=== PATIENT | female | born 1935 | race Caucasian/White ===

== ENCOUNTER 2017-05-14 20:21 | Inpatient (IN) | payer MEDICARE, BC ==
[2017-05-14] MEDS ORDERED: ACETAMINOPHEN TAB 325 MG TAB PO STA (20:56)
--- NOTE | 2017-05-14 21:03 | ED ---
Head Injury HPI - General Source: patient, EMS Mode of arrival: EMS Limitations: altered mental status - History of Present Illness Place: home <Cecelia Chase - Last Filed: 05/14/17 23:18> <Jr Galeano - Last Filed: 05/26/17 23:25> - General Chief complaint: Head Injury Stated complaint: fall Time Seen by Provider: 05/14/17 20:37 - History of Present Illness Initial comments: 81-year-old female patient presents to emergency department today for evaluation after falling from bed and hitting her head. This occurred approximately 7:40 PM. Patient is unsure of the details. She is unsure what she hit her head on. Patient denies any loss of consciousness. She denies any current headache, neck pain, back pain, or other injuries. Family denies any use of anticoagulant medication. Patient does exhibit some mild confusion however family states this is normal from previous CVA. Patient denies any chest pain, shortness of breath, dizziness, weakness, abdominal pain, nausea, vomiting, or difficulties with bowel movements or urination. She denies any cough, congestion, or throat, dysuria, hematuria, urinary urgency, urinary frequency. (Cecelia Chase) - Related Data Home Medications Medication Instructions Recorded Confirmed Budesonide/Formoterol Fumarate 2 puff INHALATION RT-BID@05/10/16 05/14/17 [Symbicort 160-4.5 Mcg Inhaler] Cholecalciferol [Vitamin D3] 1,000 unit PO DAILY@1700 05/10/16 05/14/17 Famotidine [Pepcid] 20 mg PO BID@0800,169905/10/16 05/14/17 Polyethylene Glycol 3350 [Miralax] 17 gm PO DAILY PRN 05/10/16 05/14/17 Valsartan/Hydrochlorothiazide 1 tab PO DAILY@0800 05/10/16 05/14/17 [Diovan Hct 160-12.5 mg Tab] metFORMIN HCL [Glucophage] 500 mg PO BID@0800,1700 05/10/16 05/14/17 Aspirin 81 mg PO DAILY@1700 05/14/17 05/14/17 Bisacodyl [Dulcolax] 10 mg RECTAL DAILY PRN 05/14/17 05/14/17 Glucerna 1.5 120 ml PO TID@08,12,17 05/14/17 05/14/17 Ipratropium-Albuterol Nebulize 3 ml INHALATION RT-QID@08,,17,21 05/14/1705/14 [Duoneb 0.5 mg-3 mg/3 ml Soln] Magnesium Hydroxide [Milk of 2,400 mg PO DAILY PRN 05/14/17 05/14/17 Magnesia] Na Phos,M-B/Na Phos,Di-Ba [Fleet 133 ml RECTAL ONCE PRN 05/14/17 05/14/17 Adult] Oxybutynin Chloride 2.5 mg PO BID@0800,1700 05/14/17 05/14/17 amLODIPine [Norvasc] 2.5 mg PO DAILY@0800 05/14/17 05/14/17 Previous Rx's Medication Instructions Recorded guaiFENesin [Mucinex] 1,200 mg PO Q12HR tablet.er 05/13/16 Cefuroxime [Ceftin] 250 mg PO BID #6 tablet 05/17/17 HYDROcodone/APAP 10-325MG [[place] 1 each PO Q4HR PRN #10 tab 05/17/17 10-325] HYDROcodone/APAP 10-325MG [[place] 1 tab PO TID@,,22 #20 05/17/17 10-325] LORazepam [Ativan] 0.5 mg PO DAILY PRN #10 05/17/17 fentaNYL 50MCG/HR PATCH [Duragesic 1 patch TRANSDERM Q72H #3 patch 05/17/17 50MCG/HR] rOPINIRole HCL [Requip] 0.75 mg PO HS tab 05/17/17 Allergies/Adverse reactions: Allergies Allergy/AdvReac Type Severity Reaction Status Date / Time pregabalin [From Lyrica] Allergy Swelling Verified 05/14/17 20:53 Review of Systems ROS Other: All systems not noted in ROS Statement are negative. <Cecelia Chase - Last Filed: 05/14/17 23:18> ROS Other: All systems not noted in ROS Statement are negative. <Jr Galeano - Last Filed: 05/26/17 23:25> ROS Statement: Those systems with pertinent positive or pertinent negative responses have been documented in the HPI. Past Medical History Past Medical History: COPD, CVA/TIA, Diabetes Mellitus, Hyperlipidemia, Hypertension Additional Past Medical History / Comment(s): RESTLESS LEG SYNDROME, BACK PAIN, .AORTIC ANEURYSM History of Any Multi-Drug Resistant Organisms: None Reported Past Surgical History: Appendectomy Additional Past Surgical History / Comment(s): BONE GRAFT FROM HIP TO "NECK". Past Anesthesia/Blood Transfusion Reactions: No Reported Reaction Past Psychological History: Anxiety Smoking Status: Former smoker Past Alcohol Use History: None Reported Past Drug Use History: None Reported - Past Family History Father Family Medical History: CVA/TIA <Cecelia Chase - Last Filed: 05/14/17 23:18> General Exam Limitations: altered mental status General appearance: alert, in no apparent distress, other (Vital signs upon presentation are temperature 100F, pulse 91, respirations 16, blood pressure 118/71, pulse ox 92% on room air.) Head exam: Present: other (Hematoma to the right forehead, no open wounds or bleeding.). Absent: atraumatic Eye exam: Present: normal appearance, PERRL, EOMI. Absent: scleral icterus, conjunctival injection, periorbital swelling ENT exam: Present: normal exam, normal oropharynx, mucous membranes moist, TM's normal bilaterally, other (No evidence of Jay sign) Neck exam: Present: normal inspection, full ROM, other (Nontender, no step-off, no deformity to firm midline palpation of the posterior cervical spine. Full range of motion without pain or limitation.). Absent: tenderness, meningismus, lymphadenopathy Respiratory exam: Present: normal lung sounds bilaterally. Absent: respiratory distress, wheezes, rales, rhonchi, stridor Cardiovascular Exam: Present: regular rate, normal rhythm, normal heart sounds. Absent: systolic murmur, diastolic murmur, rubs, gallop, clicks GI/Abdominal exam: Present: soft, normal bowel sounds. Absent: distended, tenderness, guarding, rebound, rigid Extremities exam: Present: normal inspection, full ROM, normal capillary refill , other (No pelvic tenderness or hip tenderness to compression.). Absent: tenderness, pedal edema, joint swelling, calf tenderness Back exam: Present: normal inspection, other (Nontender, no step-off, no deformity to firm midline palpation of the thoracic and lumbar vertebrae.). Absent: tenderness, vertebral tenderness Neurological exam: Present: alert, CN II-XII intact. Absent: oriented X3 ( Oriented x2. ) Psychiatric exam: Present: normal affect, normal mood Skin exam: Present: warm, dry, intact, normal color. Absent: rash <Cecelia Chase - Last Filed: 05/14/17 23:18> Vital Signs 05/14/17 05/14/17 05/14/17 20:22 21:05 21:14 Temperature 100.0 F H 99.9 F H Pulse Rate 91 84 Respiratory 16 18 Rate Blood Pressure 118/71 128/73 O2 Sat by Pulse 92 L 96 97 Oximetry 05/14/17 05/14/17 22:21 23:15 Temperature 97.6 F Pulse Rate 69 75 Respiratory 16 16 Rate Blood Pressure 132/72 118/75 O2 Sat by Pulse 96 Oximetry Medical Decision Making - Lab Data Result diagrams: 05/14/17 21:48 05/14/17 21:48 - Radiology Data Radiology results: report reviewed, image reviewed <Cecelia Chase - Last Filed: 05/14/17 23:18> - Lab Data Result diagrams: 05/17/17 08:59 05/17/17 08:59 <Jr Galeano - Last Filed: 05/26/17 23:25> - Medical Decision Making 81-year-old female patient presented to emergency department today for evaluation after sustaining a head injury. Upon presentation he did have an elevated temperature and heart rate. Urinalysis and lactic acid were ordered. A lactic acid was 3.2, urinalysis did show large leukocyte esterase, 16 white blood cells, rare white blood cell clumps, 6 epithelial cells, and occasional bacteria. Chest x-ray was performed and showed some bibasilar atelectasis as well as a large thoracic aortic aneurysm redemonstrated. Blood culture and urine culture has been sent. Vital signs did improve with Tylenol and IV fluids. Patient will be admitted to the hospital for IV antibiotics and further evaluation. (Cecelia Chase) I saw this patient in conjunction with the physician culinary assistant. I performed independent history and physical exam. Agree with case management. (Jr Galeano) - Lab Data Lab Results 05/14/17 05/14/17 05/14/17 Range/Units 20:33 21:48 21:48 WBC 6.7 (3.8-10.6) k/uL RBC 3.94 (3.80-5.40) m/uL Hgb 12.5 (11.4-16.0) gm/dL Hct 39.2 (34.0-46.0) % MCV 99.5 (80.0-100.0) fL MCH 31.8 (25.0-35.0) pg MCHC 32.0 (31.0-37.0) g/dL RDW 13.2 (11.5-15.5) % Plt Count 205 (150-450) k/uL Neutrophils % 77 % Lymphocytes % 11 % Monocytes % 4 % Eosinophils % 6 % Basophils % 1 % Neutrophils # 5.1 (1.3-7.7) k/uL Lymphocytes # 0.7 L (1.0-4.8) k/uL Monocytes # 0.3 (0-1.0) k/uL Eosinophils # 0.4 (0-0.7) k/uL Basophils # 0.1 (0-0.2) k/uL Macrocytosis Sodium 142 (137-145) mmol/L Potassium 4.8 (3.5-5.1) mmol/L Chloride 102 (98-107) mmol/L Carbon Dioxide 26 (22-30) mmol/L Anion Gap 14 mmol/L BUN 35 H (7-17) mg/dL Creatinine 1.40 H (0.52-1.04) mg/dL Est GFR (MDRD) Af Amer 44 (>60 ml/min/1.73 sqM) Est GFR (MDRD) Non-Af 36 (>60 ml/min/1.73 sqM) Glucose 148 H (74-99) mg/dL POC Glucose (mg/dL) (75-99) mg/dL POC Glu Air Brake Operator ID Lactic Ac Sepsis Rflx Plasma Lactic Acid Marc (0.7-2.0) mmol/L Calcium 9.8 (8.4-10.2) mg/dL Urine Color Yellow Urine Appearance Clear (Clear) Urine pH 5.0 (5.0-8.0) Ur Specific Chambers 1.014 (1.001-1.035) Urine Protein Negative (Negative) Urine Glucose (UA) Negative (Negative) Urine Ketones Negative (Negative) Urine Blood Negative (Negative) Urine Nitrite Negative (Negative) Urine Bilirubin Negative (Negative) Urine Urobilinogen <2.0 (<2.0) mg/dL Ur Leukocyte Esterase Large H (Negative) Urine RBC 1 (0-5) /hpf Urine WBC 16 H (0-5) /hpf Urine WBC Clumps Rare H (None) /hpf Ur Squamous Epith Cells 6 H (0-4) /hpf Urine Bacteria Occasional H (None) /hpf Granular Casts 1 (0) /lpf 05/14/17 05/14/17 05/15/17 Range/Units 21:48 22:21 00:40 WBC (3.8-10.6) k/uL RBC (3.80-5.40) m/uL Hgb (11.4-16.0) gm/dL Hct (34.0-46.0) % MCV (80.0-100.0) fL MCH (25.0-35.0) pg MCHC (31.0-37.0) g/dL RDW (11.5-15.5) % Plt Count (150-450) k/uL Neutrophils % % Lymphocytes % % Monocytes % % Eosinophils % % Basophils % % Neutrophils # (1.3-7.7) k/uL Lymphocytes # (1.0-4.8) k/uL Monocytes # (0-1.0) k/uL Eosinophils # (0-0.7) k/uL Basophils # (0-0.2) k/uL Macrocytosis Sodium (137-145) mmol/L Potassium (3.5-5.1) mmol/L Chloride (98-107) mmol/L Carbon Dioxide (22-30) mmol/L Anion Gap mmol/L BUN (7-17) mg/dL Creatinine (0.52-1.04) mg/dL Est GFR (MDRD) Af Amer (>60 ml/min/1.73 sqM) Est GFR (MDRD) Non-Af (>60 ml/min/1.73 sqM) Glucose (74-99) mg/dL POC Glucose (mg/dL) (75-99) mg/dL POC Glu Air Brake Operator ID Lactic Ac Sepsis Rflx Y Plasma Lactic Acid Marc 3.2 H* 1.3 (0.7-2.0) mmol/L Calcium (8.4-10.2) mg/dL Urine Color Urine Appearance (Clear) Urine pH (5.0-8.0) Ur Specific Chambers (1.001-1.035) Urine Protein (Negative) Urine Glucose (UA) (Negative) Urine Ketones (Negative) Urine Blood (Negative) Urine Nitrite (Negative) Urine Bilirubin (Negative) Urine Urobilinogen (<2.0) mg/dL Ur Leukocyte Esterase (Negative) Urine RBC (0-5) /hpf Urine WBC (0-5) /hpf Urine WBC Clumps (None) /hpf Ur Squamous Epith Cells (0-4) /hpf Urine Bacteria (None) /hpf Granular Casts (0) /lpf 05/15/17 05/15/17 05/15/17 Range/Units 07:12 07:29 07:29 WBC 5.3 (3.8-10.6) k/uL RBC 3.48 L (3.80-5.40) m/uL Hgb 11.2 L (11.4-16.0) gm/dL Hct 35.1 (34.0-46.0) % MCV 100.8 H (80.0-100.0) fL MCH 32.1 (25.0-35.0) pg MCHC 31.9 (31.0-37.0) g/dL RDW 13.4 (11.5-15.5) % Plt Count 192 (150-450) k/uL Neutrophils % 62 % Lymphocytes % 16 % Monocytes % 7 % Eosinophils % 13 % Basophils % 1 % Neutrophils # 3.3 (1.3-7.7) k/uL Lymphocytes # 0.8 L (1.0-4.8) k/uL Monocytes # 0.4 (0-1.0) k/uL Eosinophils # 0.7 (0-0.7) k/uL Basophils # 0.0 (0-0.2) k/uL Macrocytosis Slight Sodium 144 (137-145) mmol/L Potassium 4.5 (3.5-5.1) mmol/L Chloride 106 (98-107) mmol/L Carbon Dioxide 28 (22-30) mmol/L Anion Gap 10 mmol/L BUN 24 H (7-17) mg/dL Creatinine 0.98 (0.52-1.04) mg/dL Est GFR (MDRD) Af Amer >60 (>60 ml/min/1.73 sqM) Est GFR (MDRD) Non-Af 54 (>60 ml/min/1.73 sqM) Glucose 90 (74-99) mg/dL POC Glucose (mg/dL) 100 H (75-99) mg/dL POC Glu Air Brake Operator ID Taisha Meza Ac Sepsis Rflx Plasma Lactic Acid Marc (0.7-2.0) mmol/L Calcium 8.9 (8.4-10.2) mg/dL Urine Color Urine Appearance (Clear) Urine pH (5.0-8.0) Ur Specific Chambers (1.001-1.035) Urine Protein (Negative) Urine Glucose (UA) (Negative) Urine Ketones (Negative) Urine Blood (Negative) Urine Nitrite (Negative) Urine Bilirubin (Negative) Urine Urobilinogen (<2.0) mg/dL Ur Leukocyte Esterase (Negative) Urine RBC (0-5) /hpf Urine WBC (0-5) /hpf Urine WBC Clumps (None) /hpf Ur Squamous Epith Cells (0-4) /hpf Urine Bacteria (None) /hpf Granular Casts (0) /lpf 05/15/17 05/15/17 05/15/17 Range/Units 12:32 17:26 20:48 WBC (3.8-10.6) k/uL RBC (3.80-5.40) m/uL Hgb (11.4-16.0) gm/dL Hct (34.0-46.0) % MCV (80.0-100.0) fL MCH (25.0-35.0) pg MCHC (31.0-37.0) g/dL RDW (11.5-15.5) % Plt Count (150-450) k/uL Neutrophils % % Lymphocytes % % Monocytes % % Eosinophils % % Basophils % % Neutrophils # (1.3-7.7) k/uL Lymphocytes # (1.0-4.8) k/uL Monocytes # (0-1.0) k/uL Eosinophils # (0-0.7) k/uL Basophils # (0-0.2) k/uL Macrocytosis Sodium (137-145) mmol/L Potassium (3.5-5.1) mmol/L Chloride (98-107) mmol/L Carbon Dioxide (22-30) mmol/L Anion Gap mmol/L BUN (7-17) mg/dL Creatinine (0.52-1.04) mg/dL Est GFR (MDRD) Af Amer (>60 ml/min/1.73 sqM) Est GFR (MDRD) Non-Af (>60 ml/min/1.73 sqM) Glucose (74-99) mg/dL POC Glucose (mg/dL) 99 117 H 193 H (75-99) mg/dL POC Glu Air Brake Operator ID Loli, Kayley Meza, Taisha Bacon, Talia Lactic Ac Sepsis Rflx Plasma Lactic Acid Marc (0.7-2.0) mmol/L Calcium (8.4-10.2) mg/dL Urine Color Urine Appearance (Clear) Urine pH (5.0-8.0) Ur Specific Chambers (1.001-1.035) Urine Protein (Negative) Urine Glucose (UA) (Negative) Urine Ketones (Negative) Urine Blood (Negative) Urine Nitrite (Negative) Urine Bilirubin (Negative) Urine Urobilinogen (<2.0) mg/dL Ur Leukocyte Esterase (Negative) Urine RBC (0-5) /hpf Urine WBC (0-5) /hpf Urine WBC Clumps (None) /hpf Ur Squamous Epith Cells (0-4) /hpf Urine Bacteria (None) /hpf Granular Casts (0) /lpf 05/16/17 05/16/17 05/16/17 Range/Units 06:55 12:27 17:14 WBC (3.8-10.6) k/uL RBC (3.80-5.40) m/uL Hgb (11.4-16.0) gm/dL Hct (34.0-46.0) % MCV (80.0-100.0) fL MCH (25.0-35.0) pg MCHC (31.0-37.0) g/dL RDW (11.5-15.5) % Plt Count (150-450) k/uL Neutrophils % % Lymphocytes % % Monocytes % % Eosinophils % % Basophils % % Neutrophils # (1.3-7.7) k/uL Lymphocytes # (1.0-4.8) k/uL Monocytes # (0-1.0) k/uL Eosinophils # (0-0.7) k/uL Basophils # (0-0.2) k/uL Macrocytosis Sodium (137-145) mmol/L Potassium (3.5-5.1) mmol/L Chloride (98-107) mmol/L Carbon Dioxide (22-30) mmol/L Anion Gap mmol/L BUN (7-17) mg/dL Creatinine (0.52-1.04) mg/dL Est GFR (MDRD) Af Amer (>60 ml/min/1.73 sqM) Est GFR (MDRD) Non-Af (>60 ml/min/1.73 sqM) Glucose (74-99) mg/dL POC Glucose (mg/dL) 95 96 119 H (75-99) mg/dL POC Glu Air Brake Operator ANDREAS Moore, Pinky Yu Meghan Lactic Ac Sepsis Rflx Plasma Lactic Acid Marc (0.7-2.0) mmol/L Calcium (8.4-10.2) mg/dL Urine Color Urine Appearance (Clear) Urine pH (5.0-8.0) Ur Specific Chambers (1.001-1.035) Urine Protein (Negative) Urine Glucose (UA) (Negative) Urine Ketones (Negative) Urine Blood (Negative) Urine Nitrite (Negative) Urine Bilirubin (Negative) Urine Urobilinogen (<2.0) mg/dL Ur Leukocyte Esterase (Negative) Urine RBC (0-5) /hpf Urine WBC (0-5) /hpf Urine WBC Clumps (None) /hpf Ur Squamous Epith Cells (0-4) /hpf Urine Bacteria (None) /hpf Granular Casts (0) /lpf 05/16/17 05/17/17 Range/Units 20:41 07:14 WBC (3.8-10.6) k/uL RBC (3.80-5.40) m/uL Hgb (11.4-16.0) gm/dL Hct (34.0-46.0) % MCV (80.0-100.0) fL MCH (25.0-35.0) pg MCHC (31.0-37.0) g/dL RDW (11.5-15.5) % Plt Count (150-450) k/uL Neutrophils % % Lymphocytes % % Monocytes % % Eosinophils % % Basophils % % Neutrophils # (1.3-7.7) k/uL Lymphocytes # (1.0-4.8) k/uL Monocytes # (0-1.0) k/uL Eosinophils # (0-0.7) k/uL Basophils # (0-0.2) k/uL Macrocytosis Sodium (137-145) mmol/L Potassium (3.5-5.1) mmol/L Chloride (98-107) mmol/L Carbon Dioxide (22-30) mmol/L Anion Gap mmol/L BUN (7-17) mg/dL Creatinine (0.52-1.04) mg/dL Est GFR (MDRD) Af Amer (>60 ml/min/1.73 sqM) Est GFR (MDRD) Non-Af (>60 ml/min/1.73 sqM) Glucose (74-99) mg/dL POC Glucose (mg/dL) 149 H 99 (75-99) mg/dL POC Glu Air Brake Operator ID Gina Elmore, Edith Lactic Ac Sepsis Rflx Plasma Lactic Acid Marc (0.7-2.0) mmol/L Calcium (8.4-10.2) mg/dL Urine Color Urine Appearance (Clear) Urine pH (5.0-8.0) Ur Specific Chambers (1.001-1.035) Urine Protein (Negative) Urine Glucose (UA) (Negative) Urine Ketones (Negative) Urine Blood (Negative) Urine Nitrite (Negative) Urine Bilirubin (Negative) Urine Urobilinogen (<2.0) mg/dL Ur Leukocyte Esterase (Negative) Urine RBC (0-5) /hpf Urine WBC (0-5) /hpf Urine WBC Clumps (None) /hpf Ur Squamous Epith Cells (0-4) /hpf Urine Bacteria (None) /hpf Granular Casts (0) /lpf - Radiology Data Two-view x-ray of the chest did show some linear density at the lung bases. Thoracic aorta is atherosclerotic with 5 cm aneurysm. There is no heart failure. There is no evidence of pneumothorax. There is osteopenia. Impression by Dr. Keller shows large aneurysm ascending aorta. There is new patchy atelectasis at the lung bases compared to last exam. CT of the head and cervical spine were performed without contrast, report reviewed in its entirety. Impression by Dr. Keller shows cerebral atrophy. Chronic small vessel ischemia. 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 No significant change compared to old exam. Spondylotic changes in the cervical spine. No fracture. (Cecelia Chase) Disposition Decision to Admit Reason: Admit from EC Decision Date: 05/14/17 Decision Time: 22:44 <Cecelia Chase - Last Filed: 05/14/17 23:18> <Jr Galeano - Last Filed: 05/26/17 23:25> Clinical Impression: Urinary tract infection, Dehydration, Head injury Disposition: ADMITTED IP TO THIS HOSP Condition: Stable
[2017-05-14 21:11] LABS: Appearance,Urine Clear (Clear); Bacteria,Urine Occasional /hpf; Bilirubin,Urine Negative (Negative); Glucose,Urine (UA) Negative (Negative); Granular Casts,Urine 1 /lpf (0); Ketones,Urine Negative (Negative); Leukocyte Esterase,Urine Large (Negative); Nitrite,Urine Negative (Negative); Particle Count 3063; Protein,Urine Negative (Negative); RBC,Urine 1 /hpf (0-5); Specific Gravity,Urine 1.014 (1.001-1.035); Squamous Epithelial Cell,Urine 6 /hpf (0-4); UA Billing (MACRO vs. MICRO) MICRO; Urobilinogen,Urine <2.0 mg/dL (<2.0); WBC,Urine 16 /hpf (0-5)
--- NOTE | 2017-05-14 21:37 | XR ---
EXAMINATION TYPE: XR chest 2V DATE OF EXAM: 05/14/2017 COMPARISON: 05/10/2016 HISTORY: Fall. Trauma. Pain. TECHNIQUE: Frontal and lateral views of the chest are obtained. FINDINGS: There is some linear density at the lung bases. Thoracic aorta is atherosclerotic with 5 c m aneurysm. There is no heart failure. There is no evidence of a pneumothorax. There is osteopenia. IMPRESSION: Large aneurysm of ascending aorta. There is new patchy atelectasis at the lung bases com pared to last exam.
--- NOTE | 2017-05-14 21:43 | CT ---
EXAMINATION TYPE: CT brain tita harper DATE OF EXAM: 05/14/2017 COMPARISON: NONE HISTORY: Fall today. Right frontal injury. No LOC. CT DLP: 1364.30 mGycm Automated exposure control for dose reduction was used. TECHNIQUE: CT scan of the head and cervical spine are performed without contrast. FINDINGS: There is diffuse cerebral cortical atrophy. There is moderate patchy hypodensity in the p eriventricular white matter. There is no mass effect nor midline shift. There is no sign of intracran ial hemorrhage. There is a 4 x 4 centimeter old left occipital and posterior parietal lobe cortical i nfarct. The calvarium is intact. There is right frontal scalp soft tissue swelling. The cervical vertebra have normal alignment. There is old anterior fusion at C6-7. There is some narr owing of the disc space at C5-6 with spurring of the endplates. Posterior elements are intact. Skull base is intact. There is no sign of a fracture. There is no paraspinal mass. IMPRESSION: Cerebral atrophy. Chronic small vessel ischemia. 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 No significant change compared to old exam. Spondylotic changes in the cervical spine. No fracture.
[2017-05-14 22:10] LABS: Basophils # (A) 0.1 k/uL (0-0.2); Basophils % (A) 1 %; CH 32.1; CHCM 32.4; Eosinophils # (A) 0.4 k/uL (0-0.7); Eosinophils % (A) 6 %; HCT 39.2 % (34.0-46.0); HGB 12.5 gm/dL (11.4-16.0); Luc % (Auto) 1; Lymphocytes # (A) 0.7 k/uL (1.0-4.8); Lymphocytes % (A) 11 %; MCH 31.8 pg (25.0-35.0); MCV 99.5 fL (80.0-100.0); Mean Platelet Volume 8.9; Monocytes # (A) 0.3 k/uL (0-1.0); Monocytes % (A) 4 %; Neutrophils # (A) 5.1 k/uL (1.3-7.7); Neutrophils % (A) 77 %; RBC 3.94 m/uL (3.80-5.40); RDW 13.2 % (11.5-15.5); WBC 6.7 k/uL (3.8-10.6); WBC (Perox) 7.11
[2017-05-14 22:21] LABS: Calcium 9.8 mg/dL (8.4-10.2); Potassium 4.8 mmol/L (3.5-5.1)
[2017-05-14] MEDS ORDERED: SODIUM CHLORIDE 0.9% 500 ML IV ONE ×2 (22:33→22:39)
[2017-05-14] MEDS ORDERED: ACETAMINOPHEN TAB 325 MG TAB PO PRN (22:40)
[2017-05-14] MEDS ORDERED: NALOXONE 0.4 MG/ML 1 ML VIAL IV PRN (22:40)
[2017-05-14] MEDS: SODIUM CHLORIDE 0.9% 1,000 ML IV SCH (22:57)
[2017-05-15] MEDS ORDERED: HYDROcodone/APAP 10-325MG 1 EACH TAB PO PRN (01:33)
[2017-05-15] MEDS ORDERED: MAGNESIUM HYDROXIDE 2,400 MG/10 ML CUP PO PRN (01:33)
[2017-05-15] MEDS ORDERED: POLYETHYLENE GLYCOL 3350 17 GM POWD.PACK PO PRN (01:33)
[2017-05-15] MEDS ORDERED: BISACODYL 10 MG SUPP RECTAL PRN (01:33)
[2017-05-15] MEDS ORDERED: NA PHOS,M-B/NA PHOS,DI-BA 133 ML ENEMA RECTAL PRN (01:33)
[2017-05-15] MEDS ORDERED: LORazepam 0.5 MG TAB PO PRN (01:33)
[2017-05-15] MEDS: HYDROcodone/APAP 10-325MG 1 EACH TAB PO SCH ×3 (05:05→22:23)
[2017-05-15 07:28] LABS: Glucose,Whole Blood 100 mg/dL (75-99)
[2017-05-15] MEDS ORDERED: HYDROCHLOROTHIAZIDE 12.5 MG CAP PO SCH (08:00)
[2017-05-15] MEDS ORDERED: ENTERAL NUTRITION FORMULA PO SCH (08:00)
[2017-05-15 08:19] LABS: Basophils % (A) 1 %; CH 32.5; CHCM 32.4; Eosinophils # (A) 0.7 k/uL (0-0.7); Eosinophils % (A) 13 %; HCT 35.1 % (34.0-46.0); HGB 11.2 gm/dL (11.4-16.0); Luc # (Auto) 0.13; Luc % (Auto) 2; Lymphocytes # (A) 0.8 k/uL (1.0-4.8); Lymphocytes % (A) 16 %; MCH 32.1 pg (25.0-35.0); MCHC 31.9 g/dL (31.0-37.0); MCV 100.8 fL (80.0-100.0); Macrocytosis Slight; Mean Platelet Volume 8.7; Monocytes # (A) 0.4 k/uL (0-1.0); Monocytes % (A) 7 %; Neutrophils # (A) 3.3 k/uL (1.3-7.7); Neutrophils % (A) 62 %; RBC 3.48 m/uL (3.80-5.40); RDW 13.4 % (11.5-15.5); WBC 5.3 k/uL (3.8-10.6); WBC (Perox) 5.68
[2017-05-15] MEDS: guaiFENesin 600 MG TABLET.ER PO SCH ×2 (08:20→20:24)
[2017-05-15] MEDS: FAMOTIDINE 20 MG TAB PO SCH ×2 (08:20→16:27)
[2017-05-15] MEDS: amLODIPine 2.5 MG TAB PO SCH (08:23)
[2017-05-15] MEDS: metFORMIN 500 MG TAB PO SCH ×3 (08:23→19:27)
[2017-05-15] MEDS: LORazepam 0.5 MG TAB PO SCH ×2 (08:23→20:23)
[2017-05-15] MEDS: VALSARTAN 160 MG TAB PO SCH (08:24)
[2017-05-15] MEDS: OXYBUTYNIN CHLORIDE 5 MG TAB PO SCH ×2 (08:24→16:28)
[2017-05-15 08:30] LABS: Anion Gap 10 mmol/L; Blood Urea Nitrogen 24 mg/dL (7-17); Calcium 8.9 mg/dL (8.4-10.2); Carbon Dioxide 28 mmol/L (22-30); Chloride 106 mmol/L (98-107); Glucose 90 mg/dL (74-99); Non-African American GFR(MDRD) 54 (>60 ml/min/1.73 sqM); Potassium 4.5 mmol/L (3.5-5.1); Sodium 144 mmol/L (137-145)
[2017-05-15] MEDS: SYMBICORT 160-4.5 MCG INHALER INHALATION SCH ×2 (08:31→20:15)
[2017-05-15] MEDS: IPRATROPIUM-ALBUTEROL 3 ML NEB INHALATION SCH ×4 (08:31→20:17)
[2017-05-15] MEDS: ENOXAPARIN 30 MG/0.3 ML SYRINGE SQ SCH (09:04)
[2017-05-15 12:39] LABS: Glucose,Whole Blood 99 mg/dL (75-99)
[2017-05-15] MEDS: SODIUM CHLORIDE 0.9% 1,000 ML IV SCH (13:03)
--- NOTE | 2017-05-15 16:25 | HP ---
HISTORY AND PHYSICAL DATE OF ADMISSION: 05/14/2017 PRESENTING COMPLAINT: Fall. HISTORY OF PRESENTING COMPLAINT: This is an 81-year-old patient I saw today for history and physical. The patient is a resident of [facility], being followed by Dr. Doyle. Chronic stable medical conditions include COPD, diabetes, hypertension, hyperlipidemia, restless legs syndrome, on oxygen 2L. The patient is not a good historian because of underlying dementia. Normally uses a walker or a wheelchair. Patient is not sure how she took a fall, has been feeling a bit weak and tired, has a slight bruising on the right forehead. Patient only able to answer some very basic questions, thought she was feeling a bit dizzy, lightheaded. REVIEW OF SYSTEMS: CONSTITUTIONAL: Tired. HEENT: Decreased hearing. RESPIRATORY: Baseline shortness of breath. CARDIOVASCULAR: No chest pain. GASTROINTESTINAL: None. GENITOURINARY: None. MUSCULOSKELETAL: Pain in some joints. DERMATOLOGICAL: Bruising of the right forehead. NEUROLOGICAL: Shaking in the legs. PAST MEDICAL HISTORY: COPD, diabetes, hypertension, hyperlipidemia, restless legs syndrome, abdominal aortic aneurysm 5 cm, not for surgery per prior notes. Stroke, left carotid stenosis 70%, not for surgery per prior notes. Oxygen 2L, dementia. PAST SURGICAL HISTORY: Appendectomy, bone graft from hip to neck. SOCIAL HISTORY: Patient did smoke in the past. No alcohol. Currently a resident of [facility]. FAMILY HISTORY: Stroke. HOME MEDICATIONS: 1. Requip 0.5 mg q.h.s. and 0.25 p.o. q.h.s. 2. Glucophage 500 mg p.o. b.i.d. 3. Mucinex 200 mg p.o. q.12. 4. Duragesic 50 mcg patch q.72 hours. 5. Norvasc 2.5 p.o. daily. 6. Diovan/hydrochlorothiazide 160/12.5, 1 tablet p.o. daily. 7. MiraLAX 17 g p.o. daily. 8. Oxybutynin 2.5 p.o. b.i.d. 9. Adult Fleet's p.r.n. 10.Milk of magnesia 2400 mg p.o. daily p.r.n. 11.Ativan 0.5 p.o. b.i.d. 12.DuoNeb q.i.d. 13.[place] 10 t.i.d. 14. q.4h p.r.n. 15.Glucerna 1.5, 20 mL p.o. t.i.d. 16.Pepcid 20 mg p.o. b.i.d. 17.Vitamin D3 1000 units p.o. daily. 18.Symbicort 160/4.5, 2 puffs b.i.d. 19.Dulcolax 10 mg daily p.r.n. 20.Aspirin 81 mg p.o. daily. ALLERGIES: LYRICA. PHYSICAL EXAMINATION: VITAL SIGNS: On presentation, temperature 100, pulse 91, respirations 16, blood pressure 118/71 pulse ox 92% on 2L. GENERAL APPEARANCE: Average-built, sitting edge of the bed, not in distress. EYES: Pupils equal. Conjunctivae normal. HEENT: External nose and ears normal. Oral cavity normal with bruising on the right forehead. Nasal cannula in place. NECK: JVD not raised. Mass not palpable. RESPIRATORY: Effort normal. LUNGS: Diminished breath sounds. CARDIOVASCULAR: First and second sounds normal. No edema. ABDOMEN: Soft, nontender. Liver and spleen not palpable. LYMPHATIC: No lymph node palpable in neck or axillae. PSYCHIATRY: Patient is very slow to answer questions, is not sure why she is here or where she is. INVESTIGATIONS: White count 6.7, hemoglobin 12.5. Potassium 4.8, the patient's creatinine was 1 on 04/23/2017 and on admission it was 1.4. UA positive for leuko esterase, WBC. ASSESSMENT: 1. Acute renal failure, likely prerenal from dehydration from underlying urinary tract infection. 2. Acute urinary tract infection present on admission. 3. Alzheimer dementia, late onset type. 4. Chronic hypoxic respiratory failure from underlying chronic obstructive pulmonary disease. 5. Chronic obstructive pulmonary disease in an ex-smoker. 6. Diabetes mellitus type 2, on oral hypoglycemic. 7. Essential hypertension. 8. Hyperlipidemia. 9. Restless legs syndrome. 10.Abdominal aortic aneurysm, 5 cm, not for surgical intervention. 11.Left carotid stenosis 70%, not for intervention. 12.Gait dysfunction, uses a walker. PLAN: Patient is put on IV ceftriaxone. Home medications are resumed. Gentle hydration is being done. Care was discussed with the daughter at the bedside. Will hold off patient's diuretics. Encourage oral intake. MMODL / IJN: [id number] /
[2017-05-15] MEDS: CHOLECALCIFEROL 1,000 UNIT TAB PO SCH (16:27)
[2017-05-15] MEDS: ASPIRIN 81 MG PO SCH (16:27)
[2017-05-15 17:36] LABS: Glucose,Whole Blood 117 mg/dL (75-99)
[2017-05-15 20:53] LABS: Glucose,Whole Blood 193 mg/dL (75-99)
[2017-05-15] MEDS ORDERED: NON-FORMULARY DRUG (Ropinirole Hcl [Requip] 0.5 MG) PO SCH (21:00)
[2017-05-16] MEDS: HYDROcodone/APAP 10-325MG 1 EACH TAB PO SCH ×3 (05:52→20:48)
[2017-05-16 07:11] LABS: Glucose,Whole Blood 95 mg/dL (75-99)
[2017-05-16] MEDS: metFORMIN 500 MG TAB PO SCH ×2 (08:13→17:24)
[2017-05-16] MEDS: amLODIPine 2.5 MG TAB PO SCH (08:13)
[2017-05-16] MEDS: ENOXAPARIN 30 MG/0.3 ML SYRINGE SQ SCH (08:13)
[2017-05-16] MEDS: VALSARTAN 160 MG TAB PO SCH (08:13)
[2017-05-16] MEDS: OXYBUTYNIN CHLORIDE 5 MG TAB PO SCH ×2 (08:13→17:24)
[2017-05-16] MEDS: guaiFENesin 600 MG TABLET.ER PO SCH ×2 (08:14→20:48)
[2017-05-16] MEDS: FAMOTIDINE 20 MG TAB PO SCH ×2 (08:14→17:23)
[2017-05-16] MEDS: LORazepam 0.5 MG TAB PO SCH ×2 (08:23→20:50)
[2017-05-16] MEDS: IPRATROPIUM-ALBUTEROL 3 ML NEB INHALATION SCH ×4 (08:25→19:58)
[2017-05-16] MEDS: SYMBICORT 160-4.5 MCG INHALER INHALATION SCH ×2 (08:25→19:58)
[2017-05-16 12:50] LABS: Glucose,Whole Blood 96 mg/dL (75-99)
--- NOTE | 2017-05-16 15:24 | P.PN ---
Progress Note - Text Progress Note Date: 05/16/17 DATE OF SERVICE: 05/16/2017 PRESENTING COMPLAINT: fall HISTORY OF PRESENT ILLNESS: 81-year-old female presented status post fall who is a resident [facility], unable to provide much in the way of history, she is currently at her baseline. INTERVAL HISTORY: 05/16/2017: Seen in follow-up, no acute overnight events.patient is able to answer simple straightforward questions alert to self,vital signs stable, tolerating her diet , ambulatory with Walker or wheelchair and assistance. REVIEW OF SYSTEMS: Done for constitutional ,cardiovascular, GI, pulmonary with relevant findings as above. CURRENT MEDICATIONS Grant 10 one tablet 3 times a day, DuoNeb's, Norvasc 2.5 mg by mouth daily, Symbicort 1-2 puffs twice a day,ceftriaxone 1 g IV piggyback, Lovenox 30 mg subcu daily, fentanyl patch transdermals every 72 hours, Mucinex 1200 mg by mouth every 12 hours Ativan 0.5 mg by mouth daily, Glucophage 500 mg by mouth twice a day, oxybutynin 2.5 mg by mouth twice a day, Requip 0.75 mg by mouth at bedtime,Diovan 160 mg by mouth daily. PHYSICAL EXAM VITAL SIGNS: temperature 97.5, pulse 72, respiratory rate 18, blood pressure 140/70, oxygen saturation 96% on 2 L. GENERAL APPEARANCE: thin build Lying in bed, not in distress. EYES: Pupils equal. Conjunctiva normal. NECK: JVD not raised. Mass not palpable. RESPIRATORY: Respiratory effort normal. Lungs clear to auscultation. CARDIOVASCULAR: First and second sounds normal. No edema. ABDOMEN: Soft. Liver and spleen not palpable. No tenderness. No mass palpable. PSYCHIATRY: Alert and oriented x1, able to answer simple straightforward questions. Mood and affect normal. INVESTIGATIONS: none new ASSESSMENT: -acute renal failure, likely prerenal from dehydration underlying urinary tract infection. -Acute urinary tract infection present on admission. -Alzheimer's dementia late onset type. -Chronic hypoxic respiratory failure from underlying chronic obstructive pulmonary disease. -Chronic obstructive pulmonary disease in an ex-smoker. -Diabetes mellitus type 2 on oral hyperglycemic. -Essential hypertension. -Hyperlipidemia. -restless leg syndrome. -abdominal aortic aneurysm 5 centimeters not for surgical intervention. -Left carotid stenosis 70% not for intervention. -Gait dysfunction uses a walker or wheelchair. PLAN: continue IV antibiotics, gentle hydration, diuretics continue to be on hold.discharge planning to return to [facility]. We'll continue to monitor closely. CLUTCH SPECIALIST statement: Patient was seen and examined by nurse practitioner Marjan Warner and all elements of the case discussed with attending Dr. Hackett
[2017-05-16 17:21] LABS: Glucose,Whole Blood 119 mg/dL (75-99)
[2017-05-16] MEDS: ASPIRIN 81 MG PO SCH (17:24)
[2017-05-16] MEDS: CHOLECALCIFEROL 1,000 UNIT TAB PO SCH (17:24)
[2017-05-16 20:52] LABS: Glucose,Whole Blood 149 mg/dL (75-99)
[2017-05-16] MEDS: CEFUROXIME 250 MG TAB PO SCH (20:55)
[2017-05-17] MEDS: HYDROcodone/APAP 10-325MG 1 EACH TAB PO SCH ×2 (05:32→14:37)
--- NOTE | 2017-05-17 06:12 | PN ---
PROGRESS NOTE DATE OF SERVICE: 05/16/2017 ATTENDING NOTE: The patient was seen and examined by me. I discussed with my nurse practitioner, Ms. Warner. The patient is sitting up, comfortable. Did tolerate some diet. PHYSICAL EXAMINATION: On examination, afebrile. Blood pressure 140/70. Accu-Cheks are noted. The patient's creatinine has been down to 0.98. ASSESSMENT: 1. Acute renal failure likely prerenal, improved. 2. Acute urinary tract infection with urine cultures being negative. PLAN: The patient is overall doing much better. Will switch the patient over to Ceftin. Looking at the patient to go back to the [facility] tomorrow. MMODL / IJN: [id number] /
[2017-05-17 07:17] LABS: Glucose,Whole Blood 99 mg/dL (75-99)
[2017-05-17 08:41] VITALS: RESP 16
[2017-05-17] MEDS: IPRATROPIUM-ALBUTEROL 3 ML NEB INHALATION SCH ×2 (08:41→11:24)
[2017-05-17] MEDS: SYMBICORT 160-4.5 MCG INHALER INHALATION SCH (08:41)
[2017-05-17] MEDS: guaiFENesin 600 MG TABLET.ER PO SCH (08:43)
[2017-05-17] MEDS: CEFUROXIME 250 MG TAB PO SCH (08:43)
[2017-05-17] MEDS: ENOXAPARIN 30 MG/0.3 ML SYRINGE SQ SCH (08:44)
[2017-05-17] MEDS: OXYBUTYNIN CHLORIDE 5 MG TAB PO SCH (08:44)
[2017-05-17] MEDS: FAMOTIDINE 20 MG TAB PO SCH (08:44)
[2017-05-17] MEDS: amLODIPine 2.5 MG TAB PO SCH (08:44)
[2017-05-17] MEDS: metFORMIN 500 MG TAB PO SCH (08:44)
[2017-05-17] MEDS: LORazepam 0.5 MG TAB PO SCH (08:45)
[2017-05-17] MEDS: VALSARTAN 160 MG TAB PO SCH (09:01)
[2017-05-17 09:29] LABS: Basophils % (A) 1 %; CH 31.6; CHCM 31.5; Eosinophils # (A) 0.5 k/uL (0-0.7); Eosinophils % (A) 10 %; HCT 34.5 % (34.0-46.0); HDW 2.51; HGB 10.8 gm/dL (11.4-16.0); Luc # (Auto) 0.13; Luc % (Auto) 3; Lymphocytes % (A) 20 %; MCH 31.6 pg (25.0-35.0); MCHC 31.4 g/dL (31.0-37.0); MCV 100.6 fL (80.0-100.0); Mean Platelet Volume 7.8; Monocytes # (A) 0.3 k/uL (0-1.0); Monocytes % (A) 6 %; Neutrophils # (A) 2.9 k/uL (1.3-7.7); Neutrophils % (A) 61 %; RBC 3.43 m/uL (3.80-5.40); RDW 12.9 % (11.5-15.5); WBC 4.8 k/uL (3.8-10.6); WBC (Perox) 5.15
[2017-05-17 09:57] LABS: Anion Gap 12 mmol/L; Blood Urea Nitrogen 10 mg/dL (7-17); Calcium 9.3 mg/dL (8.4-10.2); Carbon Dioxide 28 mmol/L (22-30); Chloride 105 mmol/L (98-107); Glucose 123 mg/dL (74-99); Non-African American GFR(MDRD) >60 (>60 ml/min/1.73 sqM); Potassium 3.8 mmol/L (3.5-5.1); Sodium 145 mmol/L (137-145)
[2017-05-17 11:13] LABS: Glucose,Whole Blood 93 mg/dL (75-99)
[2017-05-17 15:09] VITALS: BP 151/76; PULSE 70; TEMP 98.4
--- NOTE | 2017-05-17 15:11 | P.DS ---
Providers Date of admission: 05/17/17 08:57 Expected date of discharge: 05/17/17 Attending physician: Thierno Hacektt Primary care physician: [facility] Course: FINAL DIAGNOSES: -acute renal failure, likely prerenal from dehydration underlying urinary tract infection. -Acute urinary tract infection present on admission urine cultures negative -Alzheimer's dementia late onset type. -Chronic hypoxic respiratory failure from underlying chronic obstructive pulmonary disease. -Chronic obstructive pulmonary disease in an ex-smoker. -Diabetes mellitus type 2 on oral hyperglycemic. -Essential hypertension. -Hyperlipidemia. -restless leg syndrome. -abdominal aortic aneurysm 5 centimeters not for surgical intervention. -Left carotid stenosis 70% not for intervention. -Gait dysfunction uses a walker or wheelchair. HOSPTIAL COURSE: 81-year-old female presented status post fall she is a resident at [facility] has underlying dementia and is not able to provide much in the way of history.. Patient admitted status post fall,diagnostic testing revealed acute urinary tract infection and acute renal failure, home medications ordered, IV fluids and antibiotics initiated. Diuretics held. patient's overall condition improved, tolerating her diet, up with assistance, her mentation is back to her baseline, laboratory values normalized. Condition is stable for return to [facility]. PHYSICAL EXAM: CARDIOVASCULAR: first and second sound noted no edema RESPIRATORY: respiratory effort normal, lung sounds diminished bilaterally MUSKULOSKELETAL:mild lower extremity weakness, requires assistance in getting around PSYCHIATRY: Alert and oriented 1, this is her baseline, mood and affect appropriate for situation, able to answer simple straightforward questions. Patient was seen and examined by nurse practitioner Marjan Warner in all elements of the case discussed with attending Dr. Hackett DISPOSITION:discharge to [facility] Patient Condition at Discharge: Stable Plan - Discharge Summary New Discharge Prescriptions: New Cefuroxime [Ceftin] 250 mg PO BID #6 tablet HYDROcodone/APAP 10-325MG [[place] 10-325] 1 each PO Q4HR PRN #10 tab PRN Reason: Pain rOPINIRole HCL [Requip] 0.75 mg PO HS tab Continue Cholecalciferol [Vitamin D3] 1,000 unit PO DAILY@1700 Budesonide/Formoterol Fumarate [Symbicort 160-4.5 Mcg Inhaler] 2 puff INHALATION RT-BID@ metFORMIN HCL [Glucophage] 500 mg PO BID@0800,1700 Valsartan/Hydrochlorothiazide [Diovan Hct 160-12.5 mg Tab] 1 tab PO DAILY@ 0800 Famotidine [Pepcid] 20 mg PO BID@0800,1700 Polyethylene Glycol 3350 [Miralax] 17 gm PO DAILY PRN PRN Reason: Constipation guaiFENesin [Mucinex] 1,200 mg PO Q12HR tablet.er Na Phos,M-B/Na Phos,Di-Ba [Fleet Adult] 133 ml RECTAL ONCE PRN PRN Reason: Constipation Magnesium Hydroxide [Milk of Magnesia] 2,400 mg PO DAILY PRN PRN Reason: Constipation Glucerna 1.5 120 ml PO TID@08,, Bisacodyl [Dulcolax] 10 mg RECTAL DAILY PRN PRN Reason: Constipation Oxybutynin Chloride 2.5 mg PO BID@0800,1700 amLODIPine [Norvasc] 2.5 mg PO DAILY@0800 Aspirin 81 mg PO DAILY@1700 Ipratropium-Albuterol Nebulize [Duoneb 0.5 mg-3 mg/3 ml Soln] 3 ml INHALATION RT-QID@,,, LORazepam [Ativan] 0.5 mg PO DAILY PRN #10 PRN Reason: Anxiety fentaNYL 50MCG/HR PATCH [Duragesic 50MCG/HR] 1 patch TRANSDERM Q72H #3 patch HYDROcodone/APAP 10-325MG [[place] 10-325] 1 tab PO TID@06,14,22 #20 Discontinued rOPINIRole HCL [Requip] 0.5 mg PO HS HYDROcodone/APAP 10-325MG [[place] 10-325] 1 tab PO Q4HR PRN MDD 2 DOSES PRN Reason: Pain Discharge Medication List Budesonide/Formoterol Fumarate [Symbicort 160-4.5 Mcg Inhaler] 2 puff INHALATION RT-BID@,17 05/10/16 [History] Cholecalciferol [Vitamin D3] 1,000 unit PO DAILY@1700 05/10/16 [History] Famotidine [Pepcid] 20 mg PO BID@0800,1700 05/10/16 [History] Polyethylene Glycol 3350 [Miralax] 17 gm PO DAILY PRN 05/10/16 [History] Valsartan/Hydrochlorothiazide [Diovan Hct 160-12.5 mg Tab] 1 tab PO DAILY@0800 05/10/16 [History] metFORMIN HCL [Glucophage] 500 mg PO BID@0800,1700 05/10/16 [History] guaiFENesin [Mucinex] 1,200 mg PO Q12HR tablet.er 05/13/16 [Rx] Aspirin 81 mg PO DAILY@1700 05/14/17 [History] Bisacodyl [Dulcolax] 10 mg RECTAL DAILY PRN 05/14/17 [History] Glucerna 1.5 120 ml PO TID@08,12,17 05/14/17 [History] Ipratropium-Albuterol Nebulize [Duoneb 0.5 mg-3 mg/3 ml Soln] 3 ml INHALATION RT -QID@08,12,17,21 05/14/17 [History] Magnesium Hydroxide [Milk of Magnesia] 2,400 mg PO DAILY PRN 05/14/17 [History] Na Phos,M-B/Na Phos,Di-Ba [Fleet Adult] 133 ml RECTAL ONCE PRN 05/14/17 [History ] Oxybutynin Chloride 2.5 mg PO BID@0800,1700 05/14/17 [History] amLODIPine [Norvasc] 2.5 mg PO DAILY@0800 05/14/17 [History] Cefuroxime [Ceftin] 250 mg PO BID #6 tablet 05/17/17 [Rx] HYDROcodone/APAP 10-325MG [[place] 10-325] 1 each PO Q4HR PRN #10 tab 05/17/17 [Rx ] HYDROcodone/APAP 10-325MG [[place] 10-325] 1 tab PO TID@06,14,22 #20 05/17/17 [Rx ] LORazepam [Ativan] 0.5 mg PO DAILY PRN #10 05/17/17 [Rx] fentaNYL 50MCG/HR PATCH [Duragesic 50MCG/HR] 1 patch TRANSDERM Q72H #3 patch 04/25 [Rx] rOPINIRole HCL [Requip] 0.75 mg PO HS tab 05/17/17 [Rx] Follow up Appointment(s)/Referral(s): Shimon Doyle DO [Primary Care Provider] - 05/18/17 Ambulatory/Diagnostic Orders: Complete Blood Count w/diff [LAB.AMB] Location: Determined By Patient Patient Instructions/Handouts: Urinary Tract Infection in Women (DC), Type 2 Diabetes in Adults (DC) Activity/Diet/Wound Care/Special Instructions: Regular diet fio2 to continue 2/l
[2017-05-18] MEDS ORDERED: FAMOTIDINE 20 MG TAB PO SCH (08:00)
[2017-05-18] MEDS ORDERED: ENOXAPARIN 40 MG/0.4 ML SYRINGE SQ SCH (09:00)
--- NOTE | 2017-05-19 06:29 | DS ---
DISCHARGE SUMMARY DATE OF SERVICE: 05/17/2017 ATTENDING NOTE: Patient was seen and examined by me on 05/17/2017. Discussed with my nurse practitioner, Ms. Warner. Patient admitted with UTI and renal failure. Creatinine was 1.4, did come down to 0.82 by the time of discharge. Overall prognosis is guarded. Discharge to [facility]. LUNGS: Decreased breath sounds. CARDIOVASCULAR: First and second sounds normal. The patient is able to answer simple questions. MMODL / IJN: [id number] /
--- NOTE | 2017-06-06 23:27 | PN ---
PROGRESS NOTE ADDENDUM: DATE OF SERVICE: 05/16/17. EXAMINATION: Lungs slightly decreased breath sounds. Cardiovascular first and second sounds normal. ABDOMEN: Soft: Nontender. MMODL / IJN: [id number] /
== END 2017-05-17 15:20 | DRG 683 ==
LOC: EC 20:21 → 4MS4W 22:40 → OBSVTOIN 05-17 08:57
PROVIDERS: ADMIT Hospitalist; ATTEND Hospitalist
DX: N17.9 Acute kidney failure, unspecified (principal); N39.0 Urinary tract infection, site not specified; J96.11 Chronic respiratory failure with hypoxia; J44.9 Chronic obstructive pulmonary disease, unspecified; I65.22 Occlusion and stenosis of left carotid artery; F02.80 Dementia in other diseases classified elsewhere, unspecified severity, without behavioral disturbance, psychotic disturbance, mood disturbance, and anxiety; E86.0 Dehydration; G30.1 Alzheimer's disease with late onset; E11.9 Type 2 diabetes mellitus without complications; I10 Essential (primary) hypertension; E78.5 Hyperlipidemia, unspecified; G25.81 Restless legs syndrome; I71.4 Abdominal aortic aneurysm, without rupture; R26.9 Unspecified abnormalities of gait and mobility; F41.9 Anxiety disorder, unspecified; S00.83XA Contusion of other part of head, initial encounter; W06.XXXA Fall from bed, initial encounter; Z79.899 Other long term (current) drug therapy; Z79.84 Long term (current) use of oral hypoglycemic drugs; Z79.82 Long term (current) use of aspirin; Z79.51 Long term (current) use of inhaled steroids; Z82.3 Family history of stroke; Z87.891 Personal history of nicotine dependence; Z90.89 Acquired absence of other organs; Z79.891 Long term (current) use of opiate analgesic; I69.311 Memory deficit following cerebral infarction
CPT/HCPCS: 36415; 70450; 71020; 72125; 80048; 81001; 83605; 85025; 87040; 87086; 94640; 94760; 96361; 96365; 96366; 96372; 99285